=== PATIENT | female | born 1965 | race Caucasian/White ===

== ENCOUNTER 2021-11-27 08:47 | Observation (INO) ==
--- NOTE | 2021-10-23 11:13 | PAT Medication Instructions ---
Medication Instructions Date of Service October 23, 2021 Home Medications Medication Instructions Recorded amoxicillin 500 mg tablet 2,000 mg PO ONCE #4 tab 10/26/19 Albuterol (Proventil Hfa) 2 puff INHALATION DIRECTED PRN amoxicillin 500 mg tablet 2,000 mg PO ONCE anastrozole 1 mg tablet (Arimidex) 1 mg PO HS calcium 600 mg capsule 600 mg PO QAM ferrous gluconate 325 mg (37 mg iron) tablet 325 mg PO QAM ibuprofen 200 mg capsule 200 - 400 mg PO Q6H PRN multivitamin 1 tab PO QAM Continue as directed amoxicillin 500 mg tablet 2,000 mg PO ONCE (if needed) ASK your surgeon for instructions ibuprofen 200 mg capsule 200 - 400 mg PO Q6H PRN ASK your prescriber and surgeon anastrozole 1 mg tablet (Arimidex) 1 mg PO HS DO NOT take the morning of surgery calcium 600 mg capsule 600 mg PO QAM ferrous gluconate 325 mg (37 mg iron) tablet 325 mg PO QAM multivitamin 1 tab PO QAM Take morning of surgery With a small sip of water, OTHERWISE NOTHING TO EAT OR DRINK AFTER MIDNIGHT: Albuterol (Proventil Hfa) 2 puff INHALATION DIRECTED PRN (use if needed; please bring with you to hospital day of surgery if possible) Take evening before surgery Albuterol (Proventil Hfa) 2 puff INHALATION DIRECTED PRN (if needed) Other Notes If you have any questions please call us at [phone] or [phone] or [phone] or [phone]
--- NOTE | 2021-10-24 10:21 | Anesthesiology Consultation ---
Date of Service October 24, 2021 Assessment & Plan (1) Encounter for pre-operative examination: - booking changed per surgeon's office and OR to overnight stay. - s/p R TKA: Pt reports woke during anesthesia and then required 2 night stay d/t extended time for neuraxial anesthesia to wear off. - cardiology 04/10/21: "...follow up of palpitations...chest pain-mildly abnormal stress echo (apical WMA) normal echo, ECG.. stress echocardiogram- 04/21/2014 (NORMAL) (HK apical wall), 10 METS...stable from a chest palpitations standpoint. Do not recommend further testing or procedures from a cardiovascular standpoint...follow-up in the cardiology clinic on an as-needed basis..." - COVID screening: Per assessment on 10/24/2021: Travel screen negative, no known COVID-19 positive contacts or current COVID-19 related symptoms in past 2 weeks. Pt vaccinated. Surgeon arranging preop COVID testing, scheduled 11/25/2021. Awaiting results. Chart Review Chart Review: Acceptable Risk for Surgery and Patient seen in Pre Admission Testing Teaching & Discussion Pre-Anesthesia Teaching/Discussion Notes: Instructed NPO after midnight before surgery, except medications with 15 cc of water. Medication instructions provided according to the PAT guidelines. History Surgery Operation Date: 11/27/21 12:30 Proposed Procedures p OP: Left Total Knee Arthroplasty - Osmany López MD Height/Weight Height: 5 ft 8 in Weight: 112.7 kg Allergies Allergy/AdvReac Type Severity Reaction Status Date / Time morphine AdvReac Unknown itching Verified 10/22/21 15:29 SEASONAL Allergy Intermediate runny nose Uncoded 10/22/21 15:29 , asthma kicks up Medications Home Medications Medication Instructions Recorded Confirmed Last Taken Albuterol (Proventil Hfa) 2 puff INHALATION DIRECTED PRN 08/27/15 10/22/21 Unknown #1 inhaler amoxicillin 500 mg tablet 2,000 mg PO ONCE #4 tab 10/26/19 10/22/21 Unknown anastrozole 1 mg tablet (Arimidex) 1 mg PO HS 10/22/21 10/22/21 Unknown calcium 600 mg capsule 600 mg PO QAM 10/22/21 10/22/21 Unknown ferrous gluconate 325 mg (37 mg 325 mg PO QAM 10/22/21 10/22/21 Unknown iron) tablet ibuprofen 200 mg capsule 200 - 400 mg PO Q6H PRN 10/22/21 10/22/21 Unknown multivitamin 1 tab PO QAM 10/22/21 10/22/21 Unknown Past Medical History Medical History (Updated 10/24/21 @ 10:26 by Jacquelin Bell PA-C) Asthma controlled, last rescue inhaler use > 6 months Cardiac murmur with chronic occasional palpitations with associated SOB lasting several seconds then [id number] per cardio and pt to f/u prn Migraine Obesity Vertigo chronic, stable per pt Patient denies h/o stroke, seizures, heart attack, heart failure, DM, HTN, blood clots or blood transfusions. Exercise / Class Metabolic Activity II 4-5 Yardwork/Stairs/Walk up hill (denies CP or SOB with 1 FOS) Past Family History Family History Mother Family history of reaction to anesthesia Son Family history of diabetes mellitus Family/Other Family history of diabetes mellitus Past Surgical History Surgical History History of appendectomy History of colonoscopy 2020 History of hysterectomy OVARIES REMAIN Nausea and vomiting after administration of anesthetic agent Status post right knee replacement Past Anesthesia History No Family Hx of Anesthesia Complications and Other (awareness during procedure, then extended interval for neuraxial anesthesia to "wear off" requiring 2 night stay per pt; no available records) History of PONV History of PONV (denies needing scop patach) and Hx of Motion Sickness Social History Smoking Status: Never smoker Do You Dip or Chew Tobacco: No Hx Alcohol Use: Yes Alcohol type: wine and hard liquor alcohol intake frequency: a few times a month Hx Substance Use: No Review of Systems Snoring, denies witnessed apneas. Patient denies chest pain, shortness of breath, dyspnea on exertion, reflux, fever, chills, cough or wheezing. Physical Exam Vital Signs Vitals BP 126/84 P 73 TEMP 98.6 SP02 99% on RA RESP 17 Physical Full cervical extension range of motion without pain TMD 3.5 finger breaths Mallampati Score 2 Dentition: intact, several missing teeth and crowns throughout-none in front; denies chipped or loose teeth, implants or bridges Lungs: normal respiratory effort. Clear throughout to auscultation, no adventitious breath sounds Cardiac: regular rate and rhythm, no murmurs noted Carotid arteries: negative bruit bilat Lab Results Anesthesia Preop Results Results Anesthesia Widget: WBC 8.59 K/uL (4.8-10.8) 10/24/21 Hgb 13.5 g/dL (12.0-16.0) 10/24/21 Hct 40.2 % (37-47) 10/24/21 Plt 297 K/uL (130-400) 10/24/21 Na 140 mmol/L (136-145) 10/24/21 K 4.0 mmol/L (3.5-5.1) 10/24/21 Cl 105 mmol/L (98-107) 10/24/21 CO2 28 mmol/L (21-32) 10/24/21 BUN 16 mg/dl (6-23) 10/24/21 Creat 0.79 mg/dl (0.6-1.2) 10/24/21 Glucose Level 108 mg/dl (70-99(Fasting)) H 10/24/21 PT 10.2 Seconds (9.0-12.0) 10/24/21 PTT 23.9 Seconds (21.0-31.0) 10/24/21 INR 1.0 (0.9-1.1) 10/24/21 Blood Type A Positive 10/24/21 Antibody Screen NEGATIVE 10/24/21 Testing Electrocardiogram Date: 10/24/21 NSR with sinus arrhythmia, rate 77 bpm Chest X-Ray Date: 10/24/21 Frontal and lateral radiographs of the chest demonstrate the cardiomediastinal silhouette to be within normal limits. The lungs are clear of alveolar opacities. There is no evidence for effusion bilaterally. There is no evidence for vascular congestion. There is no acute osseous pathology. IMPRESSION: 1. No acute cardiopulmonary disease.
--- NOTE | 2021-11-18 10:16 | History and Physical Report ---
DATE OF ADMISSION: 11/27/2021 CHIEF COMPLAINT: Persistent left knee pain. 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 She had a right knee replacement about 6 years ago. We have been following her left knee for the past 6 years, treating with intermittent injections, which have become less succes sful over time. They help her for a couple of days and that is about it. She has got global pain in her left knee. She limps all the time. The more she is up and on it, the more she limps. She has a limited walking tolerance. She would now like to have her left knee fixed. PAST MEDICAL HISTORY: Significant for, 1. Asthma. 2. Osteoarthritis. 3. Moderate obesity with a BMI of 38. PAST SURGICAL HISTORY: Includes, 1. Right knee replacement done on 09/18/2015. 2. Appendectomy. ALLERGIES: MORPHINE, WHICH CAUSES ITCHING. CURRENT MEDICATIONS: Include, 1. Albuterol. 2. Arimidex. 3. Calcium. 4. Iron. 5. Ibuprofen. 6. Multivitamin. SOCIAL HISTORY: This is a 56-year-old white female. Does not smoke. FAMILY HISTORY: Noncontributory. REVIEW OF SYSTEMS: Negative for diabetes, neurologic problem, vascular problems or bleeding disorder s. No chest pain or shortness of breath. No history of DVT or PE. No known bleeding problems. PHYSICAL EXAMINATION: GENERAL: Shows a pleasant middle-aged female. She has been in reasonably good health. HEENT: Benign. NECK: Supple. No lymphadenopathy. LUNGS: Clear to auscultation. HEART: Regular rate and rhythm. ABDOMEN: Soft, nontender, nondistended. EXTREMITIES: Grossly neurovascularly intact except as follows: Examination of the left knee reveals the patient ambulates independently. She has got varus alignment to her knee with a varus thrust. She clearly limps on this left side. Range of motion 5-120. No instability. No pain with hip motio n. Examination of the right knee reveals a well-healed incision. No swelling. Range of motion is 0-120 . X-RAYS: X-rays of the left knee reveal advanced left knee DJD. She has got complete loss of her med ial joint space. She has got tibiofemoral subluxation. She has tricompartment disease with osteophy yojana in all 3 compartments. The right knee replacement looks to be in good position without signs of problems. ASSESSMENT: A 56-year-old white female, 6 years out from right knee replacement with advanced left k nee degenerative joint disease. She has failed all conservative measures. She would like to proceed with left knee replacement. PLAN: We will take her to the operating room and do left total knee replacement. The risks and bene fits of this procedure were explained to the patient and include but not limited to DVT, PE, , i nfection, neurological injury, vascular injury, bleeding problem, pain, limited range of motion, stif fness, incomplete relief of symptoms, need for further surgery in the future, etc. The patient under stands and desires to proceed. Informed consent was obtained. We may consider using a tibial stem due to her significant varus deformity and tibiofemoral subluxati on. We will make that judgment at the time of surgery. She knows to stop her NSAIDs 2 weeks preop. She is planning to be discharged to home with [facility]. Job ID: [id number]
[~2021-11-27 08:47] MED LIST: ACETAMINOPHEN 500 MG TAB PO SCH; BUPIVACAINE 0.25% 30 ML VIAL ONE; BUPIVACAINE 0.5 % 5 MG/1 ML PF 10ML VIAL ONE; BUPIVACAINE LIPOSOME/PF 266 MG, BUPIVACAINE/EPINEPHRINE 50 ML, SODIUM CHLORIDE 0.9% 30 ... INFIL SCH; CeleBREX 200 MG CAP PO SCH; FAMOTIDINE 20 MG TAB PO SCH; LR 500ML BOLUS, THEN 15ML/HR IV SCH; LR 60ML/HR IV SCH; METOCLOPRAMIDE HCL 10 MG TABLET PO SCH; Scopolamine 1 MG TDSY TD SCH; TRANEXAMIC ACID 1,000 MG **IV Intra-op IV SCH; ceFAZolin 2000MG 2,000 MG/15 ML SYR IV SCH
[2021-11-27] MEDS ORDERED: MIDAZOLAM HCL 1 MG/ML 2ML VIAL ONE (09:21)
[2021-11-27] MEDS ORDERED: fentaNYL citrate 100 MCG/2 ML VIAL IV PRN (09:36)
[2021-11-27] MEDS ORDERED: ePHEDrine sulfate 50 MG/ML AMP IV PRN (09:36)
[2021-11-27] MEDS ORDERED: ATROPINE SULFATE 0.1 MG/ML 10ML SYR IV PRN (09:36)
[2021-11-27] MEDS ORDERED: ONDANSETRON INJ 2 MG/ML 2 ML VIAL IV PRN ×2 (09:36→13:48)
--- NOTE | 2021-11-27 10:28 | History & Physical Bridge Note ---
Date of Service November 27, 2021 History & Physical Bridge Note I have examined the patient, reviewed the History & Physical and in the interval since the performance of the History & Physical I have noted the following changes of clinical significance: no changes noted
[2021-11-27] MEDS ORDERED: BUPIVACAINE/EPINEPHRINE 0.25% 1:200,000 30 ML VIAL ONE (10:32)
[2021-11-27] MEDS ORDERED: SODIUM CHLORIDE 0.9% PF 50 ML VIAL ONE (10:32)
[2021-11-27] MEDS ORDERED: BUPIVACAINE LIPOSOME 1.3% 266 MG/20 ML VIAL ONE (10:32)
[2021-11-27] MEDS ORDERED: PROPOFOL IV EMULSION 10 MG/ML 20 ML VIAL IV ONE (10:35)
--- NOTE | 2021-11-27 12:42 | Operative Report ---
PG Post Operative Report Pre & Post Diagnosis Operation Date: 11/27/21 10:10 Pre-Op Diagnosis: Left Knee Osteoarthritis Post-Op Diagnosis: Left Knee Osteoarthritis I identified the patient and participated in the time-out.: Yes Procedure Operation Date: 11/27/21 10:10 Actual Procedures p Left Total Knee Arthroplasty(Left) - Osmany López MD Surgeon Osmany López MD Banquet Waiter/Waitress Bharat Clancy PA-C Estimated Blood Loss 50 Findings Consistent with Post-Op Diagnosis Operative findings revealed advanced left knee DJD. She took extensive grade 4 azqk-do-saqi disease in all 3 compartments most severe in the medial side. She had osteophytes in all 3 compartments. She had a varus deformity to her knee. Moderate-sized joint effusion. Fluids 800 cc Specimens Left knee sent for pathology Anesthesia Type Spinal MAC Complications none Disposition Accompanied Patient To Recovery: No Indications Patient is a 56-year-old female said a long history of bilateral knee pain discomfort. She been through extensive conservative treatment the past 15 years. As she had a right knee replaced in the past and is done well from this. She failed conservative measures of the left knee elected proceed with surgical treatment/knee replacement. Description of Procedure Operative implants consist of: 1 Biomet Vanguard size 62.5 left posterior stabilized femoral component. 2. Biomet size 67 tibial tray. 3. 10 mm posterior stabilized polyethylene insert. 4. 28 x 8 all Paller patella. The patient was taken to the operating room, identified, placed on the operating table supine position protectors were properly padded. IV antibiotics tried by anesthesia team. A spinal anesthetic and abductor canal block had provided in the holding area. Asher cath was placed in sterile fashion. Left factor was then placed in the left lower extremities then prepped and draped in usual sterile fashion. Left leg was elevated exsanguinated with use of an Esmarch and the tourniquet was set at 300 mmHg. An anterior posterior left knee was then performed to longitudinal incision centered over the patella. Sharp dissection was got through subcutaneous tissue down the extensor mechanism. A medial parapatellar arthrotomy incision was made. Some subperiosteal dissection was carried out medially. The fat pad was resected from Neath patella tendon. Lateral patellofemoral ligament was released. Patella subluxated laterally and the knee was flexed. The osteophytes taken off distal femur. The ACL was chronically a bsent. The PCL was released from the distal femur and the tibia subluxated anteriorly. The external tibial alignment jig was then placed in the interface the tibia and adjusted 14 mm medially. Proximal tibial cut was made essentially flush with the most deficient aspect over the posterior medial tibial plateau. Some osteophytes taken off medial and posterior medially. Tibia sized to a size 67. Attention drawn the femur. The distal femur stem with a sharp drill. Intramedullary canal was suction. A left 5 degree valgus cutting guide was placed. Distal femoral cutting block was pinned in place. Distal femoral cut was made to take an additional 3 mm bone off distal femur. The femur was then sized to a size 62.5. The AP cutting block was pinned parallel to the epicondylar axis which was 5 degrees of external rotation. The anterior cut, anterior chamfer, posterior cut, posterior chamfer cuts were made. The box cutting guide was placed in the just slight lateral and the box cut was made. The knee was flexed. The remnants of the medial and lateral menisci were excised. The osteophyte taken off the posterior aspect of the femur. A trial femoral component was placed. Tibial tray was pinned in maximum external rotation and the drill and stem punch were used to create the defect in proximal tibia for the tibial tray. Knee was then trialed and the 10 mm insert fit most appropriately. Attention drawn the patella. The patella was cleaned of all soft tissues. Patella thickness measured 21 mm in thickness was cut down to 12. At the lateral side was even more shallow and the cut was not quite flush with the most lateral side of the patella. We had to leave a little bit gap. The patella measured and sized to a size 28. The lug holes were drilled for the 28 patella. The lateral osteophyte was removed. Patella button was placed. Knee was taken through range of motion patella tracked nicely with no thumbs test. Attention drawn to place the permanent components. Nupathe all trial components were removed. Bone plug was placed in the distal femur limit blood loss. Double batch Palacos G cement was mixed. A Biomet Vanguard size 62.5 left posterior stabilized femoral component, size 67 tibial tray, a 10 mm posterior stabilized polyethylene insert, and a 28 x 8 all Paller patella then cemented into place. The knee was brought out into full extension until cement hardened. Final cement check was then performed. The pericapsular tissues were injected with total 100 cc of combination of 20 cc of Exparel, 30 cc normal saline, 50 cc of quarter percent Marcaine with epinephrine. Patient did receive 1 g tranexamic acid. The tourniquet was then let down for final turn time 54 minutes. Hemostasis assured use electrocautery. Extensor mechanism closed with combination 1 PDS suture #1 Vicryl suture in [id number] fashion. Extensor mechanism checked found to be intact the subcutaneous tissues then closed with 2 Dexon suture in buried interrupted fashion skin was closed skin izabela. Leg was then cleaned and dried and a sterile dressing was Xeroform, 4 x 4's, sterile cast padding, Antony bandage were applied. Patient then transferred to the recovery room in stable condition. The patient tolerated procedure well and there were no complications. Bharat Clancy, my physician project construction assistant manager, was present for the entire procedure. His assistance was essential and required for appropriate patient positioning, prepping and draping, surgical exposure, performing the technical details of the operation, placement the implants, closure of the wound, and placement of the sterile bandage. I attest to the content of the Intraoperative Record and any orders documented therein. Any exceptions are noted below.
--- NOTE | 2021-11-27 13:03 | XRay Report ---
LEFT KNEE 2 VIEWS History: Left total knee arthroplasty. Degenerative arthritis. Postop. FINDINGS: The patient is status post a left total knee arthroplasty. The hardware is intact. No fract ure or dislocation. Skin izabela are in place. IMPRESSION: Left total knee arthroplasty. No evidence for hardware complication. ACT 112: Negative or not required by law. Electronically signed by: Lux Guevara M.D. 11/27/2021 1:02 PM
--- NOTE | 2021-11-27 13:06 | Anesthesiology Progress Note ---
Date of Service November 27, 2021 Anesthesia Post Procedure Vital Signs Vital Signs: Temp Pulse Pulse Resp BP BP Pulse Ox 11/27/21 13:00 97.3 F L 70 12 116/83 100 11/27/21 12:50 80 15 112/66 100 11/27/21 12:40 80 16 99/72 L 100 11/27/21 12:33 96.8 F L 99 H 18 103/60 100 11/27/21 09:07 97.7 F 100 H 20 132/86 95 O2 Del Method O2 Flow Rate 11/27/21 13:00 Room Air 11/27/21 12:50 Oxymask 4 11/27/21 12:40 Oxymask 6 11/27/21 12:33 Oxymask 8 11/27/21 09:07 Room Air Transfer of Care Handoff Completed per policy Notes Mental Status: alert / awake / arousable and participated in evaluation Patient Amnestic to Procedure: Yes Nausea / Vomiting: adequately controlled Pain: adequately controlled Airway Patency, RR, SpO2: stable & adequate BP & HR: stable & adequate Hydration State: stable & adequate Neuraxial Anesthesia: was administered and sensory block is resolving Anesthetic Complications: no major complications apparent and Pt Satisfied with anesthetic care
[2021-11-27] MEDS ORDERED: NALOXONE HCL 0.4 MG/1 ML VIAL/CARP IV PRN (13:48)
[2021-11-27] MEDS ORDERED: METOCLOPRAMIDE HCL INJ 5 MG/ML 2 ML VIAL IV PRN (13:48)
[2021-11-27] MEDS ORDERED: MAGNESIUM HYDROXIDE SUSP 30 ML UDC PO PRN (13:48)
[2021-11-27] MEDS ORDERED: oxyCODONE HCL IR 5 MG TAB (IMMEDIATE RELEASE) PO PRN (13:48)
[2021-11-27] MEDS ORDERED: bisacodyL 10 MG SUPP PR PRN (13:48)
[2021-11-27] MEDS ORDERED: HYDROmorphone INJ 0.5 MG/0.5 ML SYR IV PRN (13:48)
[2021-11-27] MEDS ORDERED: diphenhydrAMINE Capsule 25 MG CAP PO PRN (13:48)
[2021-11-27] MEDS ORDERED: ALUMINUM/MAGNESIUM SUSP 30 ML UDC PO PRN (13:48)
[2021-11-27] MEDS: SODIUM CHLORIDE 0.9% 1000ML 1,000 ML IV SCH (13:57)
[2021-11-27] MEDS ORDERED: ALBUTEROL HFA 8 GM INHALER INH PRN (14:07)
[2021-11-27] MEDS: ACETAMINOPHEN 500 MG TAB PO SCH ×2 (14:20→21:33)
[2021-11-27] MEDS: KETOROLAC 30 MG/ML VIAL IV SCH ×2 (14:20→19:32)
[2021-11-27] MEDS: Scopolamine CHECK PATCH PLACEMENT SCH (15:48)
[2021-11-27] MEDS: ASCORBIC ACID 500 MG TAB PO SCH (17:34)
[2021-11-27] MEDS: ceFAZolin 2000MG 2,000 MG/15 ML SYR IV SCH (17:47)
[2021-11-27] MEDS ORDERED: TRANEXAMIC ACID / 0.7% NACL 1,000 MG/100 ML BAG IV SCH (18:45)
[2021-11-27] MEDS ORDERED: SENNA 8.6 MG TAB PO SCH (21:00)
[2021-11-27] MEDS ORDERED: ANASTROZOLE 1 MG TAB PO SCH (21:00)
[2021-11-27] MEDS: DOCUSATE SODIUM 100 MG CAP PO SCH (21:33)
[2021-11-27] MEDS: TAPENTADOL HCL ER 50 MG TABCR PO SCH (21:50)
[2021-11-27] MEDS: ASPIRIN 81 MG ECTAB PO SCH (22:05)
[2021-11-28] MEDS: Scopolamine CHECK PATCH PLACEMENT SCH ×2 (00:18→07:31)
[2021-11-28] MEDS: SODIUM CHLORIDE 0.9% 1000ML 1,000 ML IV SCH (00:40)
[2021-11-28] MEDS: KETOROLAC 30 MG/ML VIAL IV SCH ×2 (02:17→07:30)
[2021-11-28] MEDS: ceFAZolin 2000MG 2,000 MG/15 ML SYR IV SCH (02:17)
[2021-11-28] MEDS: ACETAMINOPHEN 500 MG TAB PO SCH (05:48)
[2021-11-28 06:07] LABS: Hematocrit (blood only) 35.7 % (34.1-44.9); Mean Corpuscular Hemoglobin 29.9 pg (25.0-34.0); Mean Corpuscular Hgb Conc 33.6 g/dL (32.0-36.0); Mean Corpuscular Volume 88.8 fL (80.0-100.0); Mean Platelet Volume 11.6 fL (9.4-12.3); Platelet Count 221 K/uL (130-400); RDW Coefficient of Variation 12.1 % (11.5-14.5); RDW Standard Deviation 38.9 fL (36.4-46.3); Red Blood Count 4.02 M/uL (3.93-5.22)
[2021-11-28 06:25] LABS: BUN Creatinine Ratio 22.2 (10-20); Calcium 8.4 mg/dl (8.5-10.1); Creatinine Clr Calc Pharmacy 101.7 ml/min; Est GFR (African American) 94.1 ml/min; Est GFR (Non-African American) 81.2 ml/min; Potassium 4.2 mmol/L (3.5-5.1)
[2021-11-28] MEDS: ASCORBIC ACID 500 MG TAB PO SCH (07:31)
[2021-11-28] MEDS: ASPIRIN 81 MG ECTAB PO SCH (07:31)
[2021-11-28] MEDS: DOCUSATE SODIUM 100 MG CAP PO SCH (07:31)
[2021-11-28] MEDS: TAPENTADOL HCL ER 50 MG TABCR PO SCH (07:41)
[2021-11-28] MEDS ORDERED: dexAMETHasone 10 MG in SYRINGE 0 ML IV SCH (08:00)
--- NOTE | 2021-11-28 08:12 | Progress Notes ---
DATE OF SERVICE: 11/28/2021. SUBJECTIVE: A 56-year-old female, postoperative day 1 from a left knee replacement. She is doing pr rhianna well. Pain is controlled. Had a pretty good night. No chest pain or shortness of breath. Not feeling dizzy or lightheaded. OBJECTIVE: VITAL SIGNS: Temperature 36.8. Vital signs are stable. PHYSICAL EXAMINATION: GENERAL: Shows a pleasant middle-aged female. She is sitting up in bed, looks comfortable. EXTREMITIES: Examination of the left leg reveals the leg to be well aligned. Dressing is clean, dry and intact. She can dorsiflex and plantarflex her foot appropriately. Having a little difficulty d oing a straight leg raise. LABORATORY DATA: Hemoglobin 12.0. Hematocrit 35.7. Electrolytes are stable. ASSESSMENT: A 56-year-old white female, postoperative day 1 from a left knee replacement, doing pret ty well. Pain is controlled. She is neurologically intact. PLAN: 1. DVT prophylaxis includes thigh-high TEDs, SCDs, and aspirin twice a day. 2. PT, OT, weightbear as tolerated. Left total knee protocol. 3. Pain control, doing well with current pain regimen. 4. Disposition: Plan to discharge to home with some home health likely later today if she does okay in therapy. Job ID: [id number]
[2021-11-28] MEDS ORDERED: CALCIUM CARBONATE 1250MG TAB PO SCH (09:00)
[2021-11-28] MEDS ORDERED: MULTIVITAMIN TAB PO SCH (09:00)
[2021-11-28] MEDS ORDERED: NON-FORMULARY MEDICATION (Amino Acids Powder) PO SCH (09:00)
[2021-11-28] MEDS ORDERED: FERROUS GLUCONATE 324 MG TAB PO SCH (09:00)
[2021-11-28] MEDS ORDERED: NON-FORMULARY MEDICATION (Multivitamin Tablet) PO SCH (09:00)
--- NOTE | 2021-12-02 19:10 | Discharge Summary ---
Date of Service December 02, 2021 Discharge Data Procedures Performed Operation Date: 11/27/21 10:10 Actual Procedures p Left Total Knee Arthroplasty(Left) - Osmany López MD Hospital Course (1) Status post total left knee replacement: This is a 56 year old patient admitted on 11/27/21 and underwent total knee arthroplasty. She tolerated the procedure well and there were no complications. Transferred to the PACU post op and later to the orthopedic floor for further care. She was given ancef for antibiotic prophylaxis. She was also given DAR stockings, SCDs, and aspirin for DVT prophylaxis. Hemoglobin, hematocrit, and vital signs were monitored during her hospital stay and remained stable. Did not require any blood transfusions. There were no complications during her hospital stay. By post op day #1 the patient was tolerating a regular diet, pain was reasonably controlled with oral pain medicine, and she was participating in physical therapy. On post op day #1 the patient was discharged home and set up with home health care. She was given printed discharge instructions including prescriptions for extra strength tylenol, aspirin, toradol, zofran, senokot, and oxycodone. Continue physical therapy, weight bearing as tolerated. Continue DAR stockings. Follow up approximately 2 weeks post op or sooner if there are problems or concerns. Coding Level of Care Code None Diagnoses Status post total left knee replacement Z96.652
== END 2021-11-28 13:12 | disposition home health service (06) ==
LOC: 3E 08:47 → ASU 08:47